=== PATIENT | male | born 1980 | race Caucasian/White ===

== ENCOUNTER 2019-06-06 11:46 | Emergency (ER) | payer SELFPAY ==
[~2019-06-06] VITALS: Ht 188 cm; Wt 95.3 kg
[2019-06-06 12:12] VITALS: BP 131/86
== END 2019-06-06 12:41 | disposition home or self-care (01) ==
LOC: ER 11:48
DX: M70.21 Olecranon bursitis, right elbow (principal); F17.200 Nicotine dependence, unspecified, uncomplicated; Y93.89 Activity, other specified